=== PATIENT | female | born 1990 | race Caucasian/White ===

== ENCOUNTER 2018-12-06 14:43 | Emergency (ER) | payer OTHER ==
[2018-12-06 15:05] VITALS: BP 130/82
--- NOTE | 2018-12-06 15:05 | Emergency Department Report ---
Blank Doc - Documentation Documentation: 28 y o female present to ED cc of pain to left shoulder and arm pain x yeste rday pt fell back wards at work and had a cutting board fall on her shoulder. lumbar xr shoulder and arn xray acc evaluate
[2018-12-06] MEDS ORDERED: NORCO 10/325 PO ONE (16:05)
--- NOTE | 2018-12-06 16:16 | Emergency Department Report ---
ED Upper Extremity Inj HPI - General Chief Complaint: Extremity Injury, Upper Stated Complaint: LFT ARM POSS BROKEN/PAIN Time Seen by Provider: 12/06/18 14:50 Source: patient Mode of arrival: Ambulatory Limitations: No Limitations - History of Present Illness Initial Comments: This is a 28-year-old female nontoxic, well nourished in appearance, no acute signs of distress presents to the ED with c/o of left shoulder, elbow, and forearm pain 1 day. Patient stated that she had a ground level fall at work after tripping and falling onto the left elbow/shoulder area. Patient denies any other trauma. Denies any head trauma or neck/back pain. Patient denies any numbness, tingling, fever, chills, nausea, vomiting, chest pain, shortness of breath, headache, stiff neck. Patient denies any joint swelling or joint redness. Patient stated has some decreased range of motion due to pain. Patient denies any allergies or significant past medical history. MD Complaint: Injury to:: right, shoulder, elbow, forearm -: days(s) (1) Other Extremity Injury: Elbow: Left, Shoulder: Left, Forearm: Left Other Injuries: none Place: work Severity scale (0 -10): 8 Improves With: immobilization Worsens With: movement of extremity Context: fall Associated Symptoms: denies other symptoms. denies: weakness, numbness, neck pain, suspects foreign body, nausea/vomiting, heard/felt popping sensat - Related Data Previous Rx's Medication Instructions Recorded Last Taken Type Acetaminophen/Codeine [Tylenol 1 tab PO Q6H PRN #12 tab 12/06/18 Unknown Rx /Codeine # 3 tab] Ibuprofen [Motrin] 600 mg PO Q8H PRN #20 tablet 12/06/18 Unknown Rx Allergies Allergy/AdvReac Type Severity Reaction Status Date / Time No Known Allergies Allergy Unverified 12/06/18 15:05 ED Review of Systems ROS: Stated complaint: LFT ARM POSS BROKEN/PAIN Other details as noted in HPI Constitutional: denies: chills, fever Eyes: denies: eye pain, eye discharge, vision change ENT: denies: ear pain, throat pain Respiratory: denies: cough, shortness of breath, wheezing Cardiovascular: denies: chest pain, palpitations Endocrine: no symptoms reported Gastrointestinal: denies: abdominal pain, nausea, diarrhea Genitourinary: denies: urgency, dysuria, discharge Musculoskeletal: denies: back pain, joint swelling, arthralgia Skin: denies: rash, lesions Neurological: denies: headache, weakness, paresthesias Psychiatric: denies: anxiety, depression Hematological/Lymphatic: denies: easy bleeding, easy bruising ED Past Medical Hx - Past Medical History Previous Medical History?: No - Surgical History Past Surgical History?: No - Social History Smoking Status: Never Smoker Substance Use Type: None - Medications Home Medications: Home Medications Medication Instructions Recorded Confirmed Last Taken Type Acetaminophen/Codeine [Tylenol 1 tab PO Q6H PRN #12 tab 12/06/18 Unknown Rx /Codeine # 3 tab] Ibuprofen [Motrin] 600 mg PO Q8H PRN #20 tablet 12/06/18 Unknown Rx ED Physical Exam - General Limitations: No Limitations General appearance: alert, in no apparent distress - Head Head exam: Present: atraumatic, normocephalic - Eye Eye exam: Present: normal appearance - Neck Neck exam: Present: normal inspection, full ROM. Absent: tenderness, meningismus, lymphadenopathy - Extremities Exam Extremities exam: Present: normal inspection, full ROM, tenderness, normal capillary refill. Absent: joint swelling - Expanded Upper Extremity Exam Left General: Present: normal inspection Shoulder Exam: Present: normal inspection, full ROM, tenderness. Absent: swelling, abrasion, laceration, ecchymosis, deformity, crepidus, dislocation, erythema, tenderness over AC joint Upper Arm exam: Present: normal inspection, full ROM. Absent: tenderness, swelling, abrasion, laceration, ecchymosis, deformity, crepidus, dislocation, erythema Elbow exam: Present: normal inspection, full ROM, tenderness. Absent: swelling, abrasion, laceration, ecchymosis, deformity, crepidus, dislocation, erythema, effusion, pain w/ pronation/supination, tenderness over radial head Forearm Wrist exam: Present: normal inspection, full ROM, tenderness. Absent: swelling, abrasion, laceration, ecchymosis, deformity, crepidus, erythema, tenderness over anatomical snuff box, pain with axial thumb loading Hand Wrist exam: Present: normal inspection, full ROM. Absent: tenderness, swelling Vascular: Present: vascular compromise, normal capillary refill - Back Exam Back exam: Present: normal inspection, full ROM. Absent: tenderness, CVA tenderness (R), CVA tenderness (L), muscle spasm, paraspinal tenderness, vertebral tenderness, rash noted - Neurological Exam Neurological exam: Present: alert, oriented X3, normal gait - Psychiatric Psychiatric exam: Present: normal affect, normal mood - Skin Skin exam: Present: warm, dry, intact, normal color. Absent: rash ED Course Vital Signs 12/06/18 15:01 Temperature 98 F Pulse Rate 130 H Respiratory 18 Rate Blood Pressure 130/82 O2 Sat by Pulse 100 Oximetry - Reevaluation(s) Reevaluation #1: 12/06/18 16:16 Patient is speaking in full sentences with no signs of distress noted. ED Medical Decision Making - Medical Decision Making This is a 28-year-old female that presents with left radial neck fracture. Patient is stable and was examined by me. I referred patient to an orthopedic doctor for further evaluation for possible MRI. X-ray has been obtained and dictated by the radiologist. Patient is notified of the x-ray report with noted by the patient. Patient does have normal ROM with no tenderness and no joint swelling. No ecchymosis. no joint redness or swelling. Not warm to touch. No signs of cellulites present. A sugar tong splint has been placed by RN. Post splint assessment: neurovasular intact; normal cap refill <2 second; normal sensation; denies decreaed sensation; normal ROM of digits. Patient received a shoulder sling. Patient was instructed to RICE therapy. Patient received [place] for pain. Family member is present at bedside and stated well to the patient on after discharge due to possible drowsiness. Patient is discharged with Motrin. At time of discharge, the patient does not seem toxic or ill in appearance. No acute signs of distress noted. Patient agrees to discharge treatment plan of care. No further questions noted by the patient. Google translation has been used during physical exam, interview and discharge. Critical care attestation.: If time is entered above; I have spent that time in minutes in the direct care of this critically ill patient, excluding procedure time. ED Disposition Clinical Impression: Fracture of radial neck, left, closed Qualifiers: Encounter type: initial encounter Fracture alignment: nondisplaced Qualified Code(s): S52.135A - Nondisplaced fracture of neck of left radius, initial encounter for closed fracture Disposition: DC- TO HOME OR SELFCARE Is pt being admited?: No Does the pt Need Aspirin: No Condition: Stable Instructions: Elbow Fracture in Adults (ED), Acetaminophen/Codeine (By mouth), Splint Care (ED) Additional Instructions: Follow-up with a orthopedic care doctor in 3-5 days or if symptoms worsen and continue return to emergency room as soon as possible. Prescriptions: Ibuprofen [Motrin] 600 mg PO Q8H PRN #20 tablet PRN Reason: Pain Acetaminophen/Codeine [Tylenol /Codeine # 3 tab] 1 tab PO Q6H PRN #12 tab PRN Reason: Pain , Severe (7-10) Referrals: MAE SALGADO MD [Staff Physician] - 3-5 Days [facility] [Outside] - 3-5 Days [facility] [Outside] - 3-5 Days [facility] [Referring] - 3-5 Days Forms: Work/School Release Form(ED) Print Language: GE[place]GI[place]
--- NOTE | 2018-12-06 16:40 | XRay Report ---
PROCEDURE: XR SHOULDER 2+V LT TECHNIQUE: Frontal and Y views left shoulder HISTORY: Injury COMPARISONS: None FINDINGS: There is no evidence of fracture or subluxation. The soft tissues are unremarkable. IMPRESSION: 1. No evidence of fracture or subluxation. This document is electronically signed by Sobia Diop MD., December 06 2018 04:37:46 PM ET
--- NOTE | 2018-12-06 16:44 | XRay Report ---
PROCEDURE: XR FOREARM LT TECHNIQUE: Frontal and lateral views of the left forearm and wrist HISTORY: Injury COMPARISONS: X-ray left elbow also performed today FINDINGS: There is prominence of the anterior and posterior fat pads consistent with the appearance of a joint effusion. This is indicative of an intra-articular fracture. There is slight cortical irregularity of the radial neck which could be the site of fracture. However , the distal humeral fracture would also need to be considered. The remainder of the bony structures are unremarkable. IMPRESSION: 1. Evidence of an elbow joint effusion which is indicative of an intra-articular fracture. There appe ars to be slight cortical irregularity of the radial neck could indicate a fracture in this region. H owever, a distal humeral fracture would also need to be considered. CT or MRI may be helpful for further evaluation. Referral to orthopedics is recommended. This document is electronically signed by Sobia Diop MD., December 06 2018 04:42:41 PM ET
--- NOTE | 2018-12-06 16:51 | XRay Report ---
PROCEDURE: XR ELBOW 3+V LT TECHNIQUE: Frontal, lateral, oblique views left elbow HISTORY: Injury COMPARISONS: X-ray left forearm also performed today FINDINGS: There is prominence of the anterior and posterior fat pads consistent with the appearance of joint ef fusion. This is indicative of an intra-articular fracture. There appears to be irregularity of the cortex of the radial neck which may be the site of fracture. However, a distal humeral fracture cannot entirely be excluded. The joint spaces are maintained. IMPRESSION: 1. Evidence of a joint effusion in the elbow. This is indicative of an intra-articular fracture with a history of recent trauma. 2. Irregularity of the cortex of the radial neck which may be the site of fracture. However, a distal humeral fracture cannot entirely be excluded. CT or MRI may be helpful for further evaluation. This document is electronically signed by Sobia Diop MD., December 06 2018 04:49:58 PM ET
== END 2018-12-06 17:20 | disposition home or self-care (01) ==
LOC: ED 14:43
DX: S52.135A Nondisplaced fracture of neck of left radius, initial encounter for closed fracture (principal); W01.198A Fall on same level from slipping, tripping and stumbling with subsequent striking against other object, initial encounter; Y93.89 Activity, other specified; Y92.69 Other specified industrial and construction area as the place of occurrence of the external cause; Y99.8 Other external cause status